=== PATIENT | male | born 1985 | race Caucasian/White ===

== ENCOUNTER → 2016-05-26 | Outpatient (REF) | payer OTHER ==
[~2016-05-26] MED LIST: ADVI200C5 PO
== END ==
LOC: M LAB REF 16:28
PROVIDERS: ATTEND Physician Assistant
DX: L03.011 Cellulitis of right finger (principal)

== ENCOUNTER → 2022-02-11 | Outpatient (REF) | payer BC | LOC: M LAB REF 16:16 | PROVIDERS: ATTEND Physician Assistant | DX: R50.9 Fever, unspecified (principal) ==

== ENCOUNTER 2023-03-29 14:40 | Emergency (ER) | payer BC, OTHER ==
[~2023-03-29] VITALS: Ht 172.7 cm; Wt 65.9 kg
[2023-03-29 15:48] LABS: HEMATOCRIT 48.2 % (42.0-52.0); HEMOGLOBIN 16.9 g/dl (13.5-17.5); MEAN CORPUSCULAR HGB CONC 35.1 g/dl (32.0-36.5); MEAN CORPUSCULAR VOLUME 85.5 fl (80.0-96.0); PLATELET COUNT, AUTOMATED 259 10^3/uL (150-450); RED BLOOD COUNT 5.64 10^6/uL (4.30-6.10); WHITE BLOOD COUNT 7.7 10^3/uL (4.0-10.0)
[2023-03-29 16:11] LABS: ETHYL ALCOHOL (ETHANOL) 0.098 % (0.000-0.010)
[2023-03-29 16:13] LABS: ALBUMIN 4.3 G/DL (3.2-5.2); ALKALINE PHOSPHATASE 85 U/L (46-116); ALT/SGPT 18 U/L (7.0-40); AST/SGOT 10 U/L (<34); BILIRUBIN,DIRECT 0.2 MG/DL (<0.4); BILIRUBIN,TOTAL 0.5 MG/DL (0.3-1.2); BLOOD UREA NITROGEN 8 MG/DL (9-23); CALCIUM LEVEL 9.5 MG/DL (8.5-10.1); CARBON DIOXIDE LEVEL 24 MMOL/L (20-31); CHLORIDE LEVEL 106 MMOL/L (98-107); CREATININE FOR GFR 1.07 MG/DL (0.70-1.30); GLOMERULAR FILTRATION RATE > 60.0 (>60); GLUCOSE, FASTING 85 MG/DL (60-100); POTASSIUM SERUM 3.6 MMOL/L (3.5-5.1); SALICYLATE LEVEL < 3.0 MG/DL (<30); SODIUM LEVEL 140 MMOL/L (136-145); TOTAL PROTEIN 8.2 G/DL (5.7-8.2)
[2023-03-29 16:15] LABS: THYROID STIMULATING HORMONE 2.498 uIU/ML (0.55-4.78)
[2023-03-29 16:21] LABS: AMPHETAMINES LEVEL URINE NEGATIVE (NEGATIVE)
[2023-03-29 16:22] LABS: BARBITURATES URINE NEGATIVE (NEGATIVE); BENZODIAZEPINES URINE NEGATIVE (NEGATIVE); CANNABINOIDS URINE NEGATIVE (NEGATIVE); METHADONE URINE NEGATIVE (NEGATIVE); OPIATES URINE NEGATIVE (NEGATIVE); PHENCYCLIDINE URINE NEGATIVE (NEGATIVE)
[2023-03-29 16:23] LABS: COCAINE METABOLITE URINE POSITIVE (NEGATIVE)
[2023-03-29 18:50] VITALS: BP 137/93; TEMP 98; O2SAT 98
== END 2023-03-29 18:52 | disposition home or self-care (01) ==
LOC: M ED 14:40
DX: Z04.6 Encounter for general psychiatric examination, requested by authority (principal); F10.120 Alcohol abuse with intoxication, uncomplicated; F32.A Depression, unspecified; F19.10 Other psychoactive substance abuse, uncomplicated; Z11.52 Encounter for screening for COVID-19

== ENCOUNTER 2024-05-03 13:51 | Emergency (ER) | payer MEDICAID, SELFPAY ==
[~2024-05-03] VITALS: Ht 172.7 cm; Wt 89.4 kg
[2024-05-03 13:52] VITALS: BP 157/83; TEMP 99.1; O2SAT 98
[2024-05-03] MEDS: IBUPROFEN 800 MG TAB PO ONE (18:00)
[2024-05-03] MEDS ORDERED: IBUP80TA PO (19:41)
[2024-05-03] MEDS ORDERED: VALA1TAB5 PO (19:41)
[2024-05-03] MEDS: valACYclovir HCL 500 MG TAB PO ONE (19:45)
== END 2024-05-03 20:00 | disposition home or self-care (01) ==
LOC: M ED 13:51
DX: B02.9 Zoster without complications (principal); F17.210 Nicotine dependence, cigarettes, uncomplicated; Z79.1 Long term (current) use of non-steroidal anti-inflammatories (NSAID); Z79.2 Long term (current) use of antibiotics

== ENCOUNTER → 2024-09-07 | Outpatient (CLI) | payer BC ==
[~2024-09-07] MED LIST changes: +IBUP80TA PO; +VALA1TAB5 PO
== END ==
LOC: M OUTALCOH 09:32
PROVIDERS: ATTEND Psychiatry & Neurology Psychiatry
DX: F12.10 Cannabis abuse, uncomplicated (principal); Z72.0 Tobacco use

== ENCOUNTER → 2024-11-27 | Outpatient (CLI) | payer BC | LOC: M OUTALCOH 10:11 | PROVIDERS: ATTEND Psychiatry & Neurology Psychiatry | DX: Z03.89 Encounter for observation for other suspected diseases and conditions ruled out (principal); Z72.0 Tobacco use ==